=== PATIENT | male | born 1980 | race Caucasian/White ===

== ENCOUNTER 2019-12-09 16:27 | Emergency (ER) | payer OTHER, SELFPAY ==
[2019-12-09 16:39] VITALS: BP 178/105; PULSE 154; RESP 20; TEMP 38.7; O2SAT 100
--- NOTE | 2019-12-09 16:40 | ED.URI ---
HPI - URI/Sore Throat General Chief Complaint: Upper Respiratory Infection Stated Complaint: cough/congestion/fever Time Seen by Provider: 12/09/19 16:40 Source: patient and RN notes reviewed History of Present Illness HPI Narrative: Patient is a 39-year-old male that presents the urgent care with complaints of fever, cough, congestion, scratchy throat. Patient states that it started last night and his infant is currently in the NICU. Patient states that he wanted to rule out all sickness in order to let them know. Patient denies any use of [id number] medication with the exception of essential oils and cough drops. Denies any known contact with strep or flu. Patient states he does have some anxiety and white coat syndrome with going to the doctor. No other acute complaints. Patient appears anxious. No acute distress noted. Patient read the plan of care. Related Data Home Medications Medication Instructions Recorded Confirmed No Home Medications 12/09/19 12/09/19 Allergies Allergy/AdvReac Type Severity Reaction Status Date / Time erythromycin base Allergy Rash Verified 12/09/19 16:43 Penicillins Allergy Rash Verified 12/09/19 16:43 Review of Systems Review of Systems: Narrative: CONSTITUTIONAL: Reports of fevers EYES: Denies visual changes, redness, or discharge. ENT: Reports of sore throat postnasal drainage CARDIOVASCULAR: Denies chest pain, palpitations, or edema. RESPIRATORY: Reports of nonproductive cough without dyspnea GASTROINTESTINAL: Denies abdominal pain, nausea, vomiting, or diarrhea. GENITOURINARY: Denies dysuria or hematuria. SKIN: Denies rash or itching. MUSCULOSKELETAL: Denies back pain, joint pain, or myalgia. NEUROLOGIC: Denies headache, numbness, or weakness. All other systems reviewed are negative, except as documented in HPI. [facility] Social History Social History Smoking status: Never smoker Alcohol intake: never Substance use: never Additional living arrangements comments: The patient lives with his and 2 daughters. 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 Gender identity (if verbalized by the patient): Male Spiritual care concerns: No Agree to blood products: Yes Comments At the time of my signature, I reviewed and agree with the nursing past medical, surgical, social, and family history. There is no relevant family history pertinent to the patient complaint. Exam Narrative: Exam Narrative: GENERAL: This is a well-nourished, well-developed patient, appears anxious HEAD: normocephalic, atraumatic. EYES: PERRL. Sclera clear/white. Vision is grossly intact. EARS: External ears normal, auditory canals clear and without drainage, TMs normal without perforation. Hearing grossly intact. NOSE: External nose normal with no obvious nasal discharge, bilateral erythemic nares with clear rhinorrhea. THROAT: Mucous membranes moist, posterior pharynx clear. Mild postnasal drainage NECK: Neck supple CARDIOVASCULAR: Regular rate and rhythm without murmurs, gallops, or rubs. RESPIRATORY: Clear to auscultation. Breath sounds equal bilaterally. No wheezes, rales, or rhonchi. SKIN: warm, intact with no suspicious lesions or rash, good texture and turgor. NEURO: awake, alert, and oriented to person, place and time. There were no obvious focal neurologic abnormalities. EXTREMITIES: No clubbing, cyanosis, or edema. Course Vital Signs Vital signs: Vital Signs Temperature 101.7 F H 12/09/19 16:39 Pulse Rate 154 H 12/09/19 16:39 Respiratory Rate 20 12/09/19 16:39 Blood Pressure 178/105 H 12/09/19 16:39 Pulse Oximetry 100 12/09/19 16:39 Temperature 101.5 F H 12/09/19 17:17 Pulse Rate 155 H 12/09/19 17:17 Respiratory Rate 20 12/09/19 17:17 Blood Pressure 186/112 H 12/09/19 17:17 Pulse Oximetry 99 12/09/19 17:17 Reviewed?patient is infor
[2019-12-09 16:48] VITALS: TEMP 38.7
[2019-12-09] MEDS: ACETAMINOPHEN 500 MG TABLET 1000 MG PO (16:48)
[2019-12-09 17:14] VITALS: TEMP 38.6
--- NOTE | 2019-12-09 17:15 | PC.NURSE ---
Spoke with pt about elevated HR and b/p, pt informed I would like him to stay a little longer to see if his temperature, HR and B/P will decrease. Pt refuses to stay states that he has to get his home. Pt states that his son is in the NICU and just wanted checked for FLU, pt informed he should no go to the NICU until he is fever free for 24 hours. Pt verbalizes understanding.
[2019-12-09 17:17] VITALS: BP 186/112; PULSE 155; RESP 20; TEMP 38.6; O2SAT 99
== END 2019-12-09 17:17 | disposition home or self-care (01) ==
PROVIDERS: Emergency Provider Nurse Practitioner Family
DX: B34.9 Viral infection, unspecified (principal)
CPT/HCPCS: 87081; 87804; 87880; 99213; A9270; G0463

== ENCOUNTER 2020-08-14 10:34 | Inpatient (IN) | payer OTHER, SELFPAY ==
[2020-08-14] VITALS (38 sets, daily range): BP systolic 148–204; BP diastolic 92–116; PULSE 80–111; RESP 14–22; TEMP 36.2–36.6; O2SAT 92–100; BMI 34.8
--- NOTE | ~2020-08-14 | CT_ITS ---
EXAMINATION: CT chest abdomen pelvis w con DATE: 08/14/2020 13:08 INDICATION: Chest and abdominal pain. Tachycardia. TECHNIQUE: Computed tomography (CT) of the chest, abdomen, and pelvis was performed with 100 mL Omnip aque-350 intravenous contrast. Automated exposure control and iterative reconstruction technique were employed. The dose-length product was 3633.49 mGy-cm. COMPARISON: CT abdomen and pelvis dated 10/03/2019 FINDINGS: CHEST CT: Lungs are clear with no pneumonia, pulmonary edema, pleural effusion or pneumothorax. Heart size is n ormal. No pericardial effusion. Thoracic aorta is normal in caliber with no dissection. No pathologic ally enlarged thoracic lymphadenopathy. Mild bilateral gynecomastia. Mild thoracic spondylosis. ABDOMEN/PELVIS CT: Cholecystectomy clips at the gallbladder fossa. Liver, spleen, pancreas and bilateral adrenal glands are normal. 10 mm cyst at the upper pole of the right kidney. Left kidney and bilateral ureters are n ormal. Bladder is normal. There is mild colonic diverticulosis with a sigmoid predominance. There is no adjacent inflammatory change to suggest diverticulitis. No free intraperitoneal gas or fluid. No pathologically enlarged abdominal or pelvic lymphadenopathy. Small fat-containing umbilical hernia. S mall bone islands at the left acetabulum and right femoral neck. IMPRESSION: 1. No acute cardiopulmonary disease or acute intra-abdominal/pelvic process. Reviewed, dictated and finalized at location B.
--- NOTE | ~2020-08-14 | XR_ITS ---
EXAMINATION: XR chest 2V DATE: 08/14/2020 11:12 INDICATION: Hypertension. TECHNIQUE: Frontal and lateral views of the chest were obtained. COMPARISON: None. FINDINGS: The chest demonstrates clear lungs without pneumonia, pleural effusion, or pneumothorax. Th e heart size is normal. Surgical clips in the right upper quadrant are likely from cholecystectomy. IMPRESSION: 1. No acute cardiopulmonary disease. Reviewed, dictated and finalized at location A.
--- NOTE | ~2020-08-14 | CT_ITS ---
EXAMINATION: CT brain wo con DATE: 08/14/2020 11:17 INDICATION: Weakness. TECHNIQUE: Computed tomography (CT) of the head was performed without intravenous contrast. The mA wa s adjusted according to patient size. Iterative reconstruction technique was employed. The dose-lengt h product was 605.33 mGy-cm. COMPARISON: None FINDINGS: There is no intracranial hemorrhage, acute infarction, or abnormal intracranial mass lesion . The ventricles are normal in size. There is mild mucosal thickening in the ethmoid sinuses. The orb its are normal. The mastoid air cells are normal. IMPRESSION: 1. Normal brain. Reviewed, dictated and finalized at location A. IMPRESSION: 1. Normal brain.
--- NOTE | 2020-08-14 10:43 | ECG_ITS ---
Measurements Intervals [place] Rate: 98 P: 51 [place]: 148 QRS: 13 QRSD: 122 T: 5 QT: 367 QTc: 471 Interpretive Statements SINUS RHYTHM WITH SINUS ARRHYTHMIA POSSIBLE LEFT ATRIAL ENLARGEMENT RIGHT BUNDLE BRANCH BLOCK BASELINE ARTIFACT- I, II, III, AVL, AVF, V2-V3 ABNORMAL ECG Electronically Signed On 08-14-2020 11:05:32 CDT by Vinny Cordova D.O.
[2020-08-14 10:58] LABS: Basophils Percent Auto 0.3 % (0.2-1.2); Eosinophils Absolute Auto 0.1 K/mm3 (0-0.3); Hematocrit 50.2 % (42.0-52.0); Immature Granulocyte Absolute 0.03 K/mm3 (0.00-0.031); Immature Granulocyte Percent A 0.3 % (0-0.5); Lymphocytes Absolute Auto 3.69 K/mm3 (0.9-3.2); Lymphocytes Percent Auto 35.1 % (18.3-44.2); Mean Corpuscular HGB Conc 33.9 g/dl (32-36); Mean Corpuscular Hemoglobin 29.6 pg (26-34); Mean Corpuscular Volume 87.3 fl (80-100); Mean Platelet Volume 9.8 fl (7.4-10.4); Monocytes Percent Auto 9.1 % (2.6-8.5); Neutrophils Absolute Auto 5.7 K/mm3 (1.3-6.7); Neutrophils Percent Auto 54.2 % (45.5-73.1); Platelet Count Result 284 k/mm3 (150-375); Red Blood Count 5.75 M/mm3 (4.6-6.20); Red Cell Distribution Width 12.8 % (11.5-14.5); White Blood Count 10.5 K/mm3 (4.5-10.0)
--- NOTE | 2020-08-14 10:59 | ED.WEAKNESS ---
HPI - Weakness General Chief complaint: Weakness Stated complaint: dont feel right Time Seen by Provider: 08/14/20 10:47 Source: patient Mode of arrival: ambulatory Limitations: no limitations History of Present Illness HPI Narrative: Patient is a 39-year-old gentleman with history of hypertension who presents for evaluation of general malaise and feeling unwell. Patient states he has felt unwell over the past 24 hours. Today, he states that he feels off. He denies any rubi headache, or abdominal pain. He is reporting some left sided chest discomfort that travels into his left axilla. He denies shoulder pain, back pain. No ripping or tearing sensation to the pain. He reports nausea without vomiting. He reports that he was quite dehydrated yesterday after not drinking any water after forgetting to drink all day, and then decided to be seen in the ER this morning. He has had no trouble with ambulation. He has no weight loss. No fever or recent illnesses. Patient is not on any antihypertensives at this time, states he has established with a new primary to visit with on . He cannot recall the name of his primary care physician. Patient reports some tingling in his bilateral lower legs. He denies any alcohol or drug use. No food intolerances. No recent nausea or vomiting. No dysuria or hematuria. Related Data Home Medications Medication Instructions Recorded Confirmed No Home Medications 12/09/19 12/09/19 Allergies Allergy/AdvReac Type Severity Reaction Status Date / Time erythromycin base Allergy Rash Verified 08/14/20 10:38 Penicillins Allergy Rash Verified 08/14/20 10:38 Review of Systems Review of Systems: Narrative: CONSTITUTIONAL: Denies fever, chills, or sweats. EYES: Denies visual changes, redness, or discharge. ENT: Denies rhinorrhea, congestion, sore throat, or otalgia. CARDIOVASCULAR: Denies chest pain, palpitations, or edema. RESPIRATORY: Denies cough or dyspnea. GASTROINTESTINAL: Denies abdominal pain, reports nausea, denies vomiting, or diarrhea. GENITOURINARY: Denies dysuria or hematuria. SKIN: Denies rash or itching. MUSCULOSKELETAL: Denies back pain, joint pain, or myalgia. NEUROLOGIC: Denies headache, numbness, reports feeling diffusely weak PMFSH Past Medical History Medical History (Updated 08/14/20 @ 14:02 by Nilda Wong MD) Acute calculous cholecystitis Acute cholecystitis Cholecystitis, acute with cholelithiasis Encounter for surgical aftercare following surgery on the digestive system Hypertension Surgical History Surgical History (Updated 08/14/20 @ 11:01 by Nilda Wong MD) Hx of cholecystectomy Family History Family History (Reviewed 10/19/19 @ 10:59 by Corinne Helton [facility]) Father Diabetes mellitus Gallbladder disease Social History Social History Smoking status: Never smoker Alcohol intake: never Substance use: never Additional living arrangements comments: The patient lives with his and 2 daughters. 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 Gender identity (if verbalized by the patient): Male Spiritual care concerns: No Agree to blood products: Yes Exam Narrative: Exam Narrative: GENERAL: Awake, alert, conversant, tearful HEAD: Normocephalic, atraumatic. EYES: PERRLA and EOMI. ENT: Nares clear, no rhinorrhea or epistaxis. Mucous membranes moist. NECK: Supple. CHEST: No respiratory distress, breathing even and non labored HEART: Tachycardic rate, sinus rhythm ABDOMEN:Non distended, non tender EXTREMITIES: Normal range of motion. No edema. SKIN: Warm, dry, no rash. NEURO:No focal deficits. Alert and oriented x3. Finger to nose intact bilaterally. EOMs intact without nystagmus. No facial droop/asymmetry noted bilaterally. Grimace intact. Intact sensation in face. Hearing intact bilaterally. Shoulder shrug
--- NOTE | 2020-08-14 10:59 | PC.NURSE ---
PT GIVEN URINAL AT THIS TIME TO ATTEMPT UA, STATES HE CANNOT GO RIGHT NOW, REFUSING STRAIGHT CATH.
[2020-08-14] MEDS: ONDANSETRON INJ 4 MG/2 ML VIAL IV PUSH (11:08)
[2020-08-14] MEDS: SODIUM CHLORIDE 0.9% IV 1,000 ML 999 ML IV CONT (11:08)
--- NOTE | 2020-08-14 11:08 | PC.NURSE ---
PT TO RADIOLOGY AT THIS TIME IN [facility].
[2020-08-14 11:19] LABS: Add Urine Microscopic? NO; Appearance Urine Clear (Clear); Bilirubin Urine Negative (Negative); Blood Urine Negative (Negative); Color Urine Yellow (Yellow); Glucose Urine UA Negative (Negative); Ketones Urine Negative (Negative); Leukocyte Esterase Ur Negative LEU/UL (Negative); Nitrate Urine Negative (Negative); Protein Urine Negative (Negative); Specific Grav Ur 1.016 (1.001-1.035); Urobilinogen Urine Negative mg/dL (<2.0)
[2020-08-14 11:36] LABS: Glucose Point of Care 121 (65-105)
[2020-08-14 11:39] LABS: Prothrombin Time 12.6 Seconds (11.1-14.7)
[2020-08-14 11:40] LABS: Partial Thromboplastin Time 28.1 SECONDS (22.3-36.8)
[2020-08-14 11:42] LABS: D Dimer 0.32 ug/mL (<0.48)
[2020-08-14] MEDS: LABETALOL HCL INJ 100 MG/20 ML VIAL 20 MG IV PUSH (11:51)
[2020-08-14 11:57] LABS: Lactic Acid Reflex 1.4 mmol/L (0.7-2.1)
[2020-08-14 11:58] LABS: Alanine Aminotransferase 32 U/L (4-50); Albumin Level 4.3 g/dL (3.5-5.1); Alkaline Phosphatase 88 U/L (38-126); Anion Gap 8 mmol/L (8-16); Aspartate Amino Transferase 30 U/L (17-59); Bilirubin,Total 1.2 mg/dL (0.2-1.3); Blood Urea Nitrogen 14 mg/dL (9-20); Calcium 9.2 mg/dL (8.4-10.2); Carbon Dioxide 28 mmol/L (22-30); Chloride 101 mmol/L (98-107); Creatine Kinase 138 U/L (55-170); Estimated CRCL calculation 129 ml/min; Estimated Glomerular Filt Rate > 60; Glucose 135 mg/dL (75-110); Potassium 3.9 mmol/L (3.4-5.0); Sodium 137 mmol/L (137-145)
[2020-08-14 12:09] LABS: NT Pro B Type Natriuretic Pept 65 PG/ML (5-100); Troponin I < 0.012 ng/mL (0.000-0.034)
[2020-08-14 12:27] LABS: Thyroid Stimulating Hormone 0.921 uIU/mL (0.465-4.680)
[2020-08-14] MEDS: ASPIRIN 81 MG CHEWABLE TABLET 324 MG PO (14:20)
--- NOTE | 2020-08-14 15:18 | ADMGEN ---
This patient, Ky Yan, was admitted to IMU Room 213-01. Patient/family oriented to hospital policies and general routines including ID bracelet, bed and alarms, visiting hours, pain management, procedures, bathroom and other care routines, personal items, smoking policy, room service/diet, and visiting hours. Valuables list has been completed. Information on how to activate the Rapid Response Team has been discussed. Patient/Family are encouraged to report perceived risks to care and to ask questions if they do not understand what they are told or what they should do.
[2020-08-14 17:47] LABS: Troponin I < 0.012 ng/mL (0.000-0.034)
--- NOTE | 2020-08-14 17:58 | PM.IMHP ---
H&P: HPI History of Present Illness Date/Time: 08/14/20 17:58 Chief complaint: hypertensive crisis Narrative: Ky Yan is a 39 year old male Who is a fairly healthy patient and is not on any medications. The patient had his gallbladder removed here October of last year. Patient was noted to have an elevated blood pressure at that time of about 170/90. However the patient has not been on any blood pressure medications. The patient stated that he has not been feeling very well for approximately 1 month. The patient has been monitoring his blood pressures and his blood pressure is 140/90 last night he rejected again this morning and it was the same it. Today the patient just stated that he did feel very well that he had some discomfort under his left arm it was somewhat tender. It did get worse with movement at 1 time. Otherwise it just lasted for few seconds. The patient stated that he felt dehydrated because he had not drink very much he fluids yesterday. The patient stated he has not done anything straining is but this feels like a pulled muscle. He just feels off today. Patient recently got established with a new primary care doctor who is not seen yet. Prior to coming to the hospital patient's blood pressure came up to 170/100. He had no nausea or vomiting. He also had some numbness and tingling to his lower extremities. It was localized pain under the left axillary area but it did not radiate down his arm or up his neck. And only lasts a few seconds and was gone. When the patient had a CT scan performed in the emergency room and lifted up his left arm he felt a little bit of a pain under that left arm as well. And if that area is touched it is slightly tender. EKG shows a right bundle branch block. The patient was not aware of having any abnormal EKGs in the past. Patient is not having any chest pain at this time. The patient does note that he has been under lot of stress recently. Troponins are negative x2. I briefly spoke to Cardiology who stated they would be available if the needed to be involved. At this time everything is coming back negative. The patient and his are requesting to be evaluated by a backbreaker. The patient was given IV fluids in the emergency room, labetalol, aspirin and Zofran. Chest abdominal pelvis CT was read as no acute cardiopulmonary disease or acute intra-abdominal pelvic process. Head CT was read as normal brain. Chest x-ray was read as no acute cardiopulmonary disease. Date of service is 08/14/2020 Review of Systems Review of Systems: All systems reviewed & are unremarkable except as noted in HPI and below Constitutional: Constitutional: Reports as per HPI and Reports no additional constitutional complaints Eyes: Eyes: Reports as per HPI and Reports no additional eye complaints ENT: Reports system reviewed and no additional complaints, except as documented and Reports Normal hearing present Cardiovascular: Cardiovascular: Reports no additional cardiovascular complaints Respiratory: Respiratory: Reports no additional respiratory complaints and Reports no additional respiratory complaints Gastrointestinal: Gastrointestinal: Reports as per HPI and Reports no additional gastrointestinal complaints Musculoskeletal: Musculoskeletal: Reports no additional musculoskeletal complaints Integumentary/Breasts: Skin/Breast: Reports system reviewed and no additional complaints, except as docu and Reports as per HPI Neurologic: Reports system reviewed and no additional complaints, except as documented, Reports as per HPI and Reports Normal hearing present Psychiatric: Psychiatric: Reports no additional psychiatric complaints and Reports as per HPI Endocrine: Endocrine: Reports no additional endocrine complaints Hematologic/Lymphatic: Hematologic/Lymphatic: Reports no additional hematologic/lymphatic complaints Allergic/Immunologic: Allergic/Immunologic: Reports no additional allergic/immu
[2020-08-14] MEDS: hydrALAZINE HCL 20 MG/ML VIAL IV PUSH (18:58)
[2020-08-14 21:09] LABS: Troponin I < 0.012 ng/mL (0.000-0.034)
[2020-08-14] MEDS: ACETAMINOPHEN 325 MG TABLET 650 MG PO (21:39)
[2020-08-15] VITALS (20 sets, daily range): BP systolic 121–179; BP diastolic 64–101; PULSE 63–105; RESP 16–20; TEMP 35.6–36.5; O2SAT 96–99
--- NOTE | 2020-08-15 | ECHO_ITS ---
Patient Info Name: Ky Yan Age: 39 years : 1980 Gender: Male Ht: 76 in Wt: 286 lbs BSA: 2.68 m2 HR: 89 bpm BP: 137 / 72 mmHg Heart Rhythm: Sinus Rhythm Technical Quality: Good Exam Date: 08/15/2020 8:07 AM Exam Location: [facility] Patient Status: Inpatient Admit Date: 08/14/2020 Staff Ordering Physician: Pilar Fox NP Director Furniture: Jerad Parra RDCS, RT Attending Provider: Alberto Johnson MD Referring Physician: Ruddy GARRETT; Exam Type: CA echo doppler color flow Study Info Indications I50.9 - Heart failure, unspecified Complete two-dimensional, color flow and Doppler transthoracic echocardiogram is performed. Strain analysis performed. Summary 1. Complete two-dimensional, color flow and Doppler transthoracic echocardiogram is performed. 2. Strain analysis performed. 3. Left ventricular chamber dimension is normal. 4. Left ventricular systolic function is normal, estimated at 60-65%. 5. There is mildly increased left ventricular wall thickness. 6. Left ventricular septal wall motion is normal. 7. The left ventricular diastolic function is normal. 8. Global longitudinal strain is borderline at -17 %. 9. There is mild mitral valve regurgitation. 10. There is mild tricuspid valve regurgitation. 11. There is mild pulmonic regurgitation. Left Ventricle Left ventricular chamber dimension is normal. Left ventricular systolic function is normal, estimated at 60-65%. There is mildly increased left ventricular wall thickness. Left ventricular septal wall motion is normal. The left ventricular diastolic function is normal. Global longitudinal strain is borderline at -17 %. Right Ventricle Right ventricular chamber dimension is normal. Right ventricular systolic function is normal. Left Atria Left atrial chamber dimension is normal. Right Atria Right atrial chamber dimension is normal. Atrial Septum Interatrial septum not well visualized by color flow imaging. Aortic Valve The aortic valve is trileaflet. There is no aortic valve sclerosis. There is no aortic valve stenosis. There is trace aortic valve regurgitation. Pulmonic Valve The pulmonic valve is normal. There is no pulmonic valve stenosis. There is mild pulmonic regurgitation. Mitral Valve The mitral valve has normal leaflets. There is no mitral valve stenosis. There is mild mitral valve regurgitation. Tricuspid Valve The tricuspid valve leaflets are normal. There is no significant tricuspid valve stenosis. There is mild tricuspid valve regurgitation. Pericardium/Pleural The pericardium appears normal. There is trivial pericardial effusion. Inferior Vena Cava Normal inferior vena cava with <50% collapse upon inspiration consistent with elevated right atrial pressure, 10 mmHg. Aorta The aortic root size at the sinus of Valsalva is normal. Left Ventricular Outflow Tract Name Value Normal LVOT 2D LVOT Diameter 2.2 cm LVOT Doppler LVOT Peak Gradient 5 mmHg LVOT Mean Gradient 3 mmHg LVOT VTI
[2020-08-15 05:34] LABS: Alanine Aminotransferase 28 U/L (4-50); Albumin Level 3.8 g/dL (3.5-5.1); Alkaline Phosphatase 74 U/L (38-126); Anion Gap 6 mmol/L (8-16); Aspartate Amino Transferase 27 U/L (17-59); Bilirubin,Total 1.1 mg/dL (0.2-1.3); Blood Urea Nitrogen 11 mg/dL (9-20); CRP < 0.5 mg/dL (<1.0); Calcium 8.9 mg/dL (8.4-10.2); Carbon Dioxide 29 mmol/L (22-30); Chloride 105 mmol/L (98-107); Cholesterol 181 mg/dL (0-200); Estimated CRCL calculation 127 ml/min; Estimated Glomerular Filt Rate > 60; Glucose 104 mg/dL (75-110); HDL Direct 29 mg/dL; Lactate Dehydrogenase 294 U/L (313-618); Magnesium 2.6 mg/dL (1.6-2.3); Sodium 140 mmol/L (137-145); Triglycerides 118 mg/dL (<150)
[2020-08-15 05:44] LABS: LDL Cholesterol Direct 133 mg/dL
--- NOTE | 2020-08-15 08:47 | PM.IMPN ---
Progress Note: A&P Assessment and Plan (1) Right bundle branch block: Code(s): I45.10 - Unspecified right bundle-branch block Status: Acute Assessment and Plan: New RBBB, stable. (2) Chest pain: Code(s): R07.9 - Chest pain, unspecified Status: Acute Assessment and Plan: Does not appear to be of cardiac origin, trops are normal, ECG no T waves or ST changes. 2DECHO noted Appreciate Cardiology note. (3) Anxiety: Code(s): F41.9 - Anxiety disorder, unspecified Status: Acute Assessment and Plan: Xanax prn at HS Going home will start Buspirone (4) Hypertensive crisis: Code(s): I16.9 - Hypertensive crisis, unspecified Status: Acute Assessment and Plan: Patient will be started on Lisinopril 10 mg po daily. Will follow up in the outpatient setting with his PCP, previous existing appointment Continue to monitor. (5) Atypical chest pain: Code(s): R07.89 - Other chest pain Status: Acute Assessment and Plan: Likely secondary to MSK as reproducible Tylenol prn Ruled ACS with negative trops, ECG no changes. (6) Hypertension: Qualifiers: Hypertension type: essential hypertension Qualified Code(s): I10 - Essential (primary) hypertension Code(s): I10 - Essential (primary) hypertension Status: Acute Assessment and Plan: Will be started on Lisinopril as stated above. Subjective Date/time seen: 08/15/20 08:47 Patient presented to ED after he had an abnormal reading of his BP at home, has been feeling off for couple of days. Review of Systems Review of Systems: Narrative: Chest discomfort on the precordial area with radiation to L armpit. Constitutional: Comments: No fevers, no chills, no rigors. ENT: Comments: No vision changes, no nasal discharge, no throat pain. Cardiovascular: Cardiovascular: Reports chest pain and Reports chest pain at rest Comments: Chest discomfort like burning sensation with radiation to L armpit. Respiratory: Comments: No cough, no sputum production, no sob. Gastrointestinal: Comments: no n/v/abdominal pain Musculoskeletal: Comments: Chest pain with radiation to L armpit. Integumentary/Breasts: Comments: no rashes, no discoloration. Neurologic: Comments: No sensorymotor deficit. Psychiatric: Psychiatric: Reports anxiety Endocrine: Comments: no heat or cold intolerance, no increased thirst. Hematologic/Lymphatic: Comments: No LAP Exam Narrative: Exam Narrative: Lying in bed, awake, alert. Const: General: cooperative, healthy appearing, comfortable, well developed, alert, awake, Physically active and anxious Nutritional Appearance: average body habitus Orientation/consciousness: patient oriented x3 Limitations: no limitations HENMT: Head: normal to inspection, normocephalic and atraumatic Ears: hearing grossly normal bilaterally General nose exam: Normal external nose present Face and sinus: normal facial exam Mouth: Yes Normal oral and palatal mucosa present Teeth and gingiva: dentition normal Throat: posterior oropharynx normal Eyes: General: appearance normal, both eyes and all related structures Pupils: Equal, round and reactive pupils present EOM: EOMs intact bilaterally Neck: Neck: full ROM, no lymphadenopathy and no JVD Thyroid: thyroid normal Lymphatic: no lymphadenopathy noted Resp: Auscultation: clear to auscultation bilaterally Cardio: Jugular venous distension: no JVD Palpation: normal PMI Rate: regular rate Rhythm: regular rhythm Heart sounds: S1 normal heart sound present and S2 normal heart sound present GI: Inspection: normal to inspection GI Palp: Yes Soft to palpation and Yes No hepatosplenomegaly present Auscultation: normal bowel sounds Skin: General skin exam: normal color and turgor normal Lesions: no lesions Rashes: no rashes Wounds: no wounds Hair: normal Nails: normal Neuro: General: patient oriented x3 and gait
[2020-08-15] MEDS: ENOXAPARIN 40 MG/0.4 ML SYRINGE SUB-Q (08:51)
[2020-08-15] MEDS: ASPIRIN 81 MG CHEWABLE TABLET PO (08:51)
--- NOTE | 2020-08-15 14:27 | PM.CNCAR ---
Assessment and Plan Assessment and plan (1) Hypertension: Qualifiers: Hypertension type: essential hypertension Qualified Code(s): I10 - Essential (primary) hypertension Code(s): I10 - Essential (primary) hypertension Status: Acute Assessment and Plan: will start him on lisinopril 10 mg daily. Up titrate as Needed (2) Chest pain: Code(s): R07.9 - Chest pain, unspecified Status: Acute Assessment and Plan: this is reproducible And noncardiac in etiology. (3) Anxiety: Code(s): F41.9 - Anxiety disorder, unspecified Status: Acute Assessment and Plan: outpatient treatment (4) Right bundle branch block: Code(s): I45.10 - Unspecified right bundle-branch block Status: Acute Assessment and Plan: echocardiogram is ordered and will be reviewed. History of Present Illness History of Present Illness Consult date/time: 08/15/20 14:27 Requesting physician: Pilar Fox NP Consult reason: hypertension Reason For Visit: hypertensive crisis Narrative: Date of service 08/15/2020 Reason for consultation hypertension, chest pain History: Patient is a 39-year-old male who came to the hospital because he felt off . He has not been feeling well for the past couple days. He woke up yesterday still feeling not normal and checked his blood pressure was 140/90. About 30 minutes later his blood pressure is 170/100. At that point decided to come to the hospital for further workup and evaluation. Patient did have some (core muscle, left armpit sensation . He describes as a burning type of sensation that is worsen whenever he is lifting objects or moving his arm. It is also reproducible by pushing on his chest. Does not radiate into the back or neck. It is not associated with exertion nor is it associated with shortness of breath, nausea or diaphoresis. He admits that he has been under stress and may have some anxiety . Denies any syncope, presyncope, paroxysmal nocturnal dyspnea, orthopnea, edema, palpitations or shortness of breath. Review of Systems Review of Systems: All systems reviewed & are unremarkable except as noted in HPI and below Constitutional: Constitutional: Denies chills Eyes: Eyes: Denies blurry vision ENT: Reports Normal hearing present Cardiovascular: Cardiovascular: Denies syncope Respiratory: Respiratory: Denies cough Gastrointestinal: Gastrointestinal: Denies abdominal pain Genitourinary: Genitourinary: Denies hematuria Musculoskeletal: Musculoskeletal: Denies back pain Integumentary/Breasts: Skin/Breast: Denies swelling Neurologic: Reports Normal hearing present Psychiatric: Psychiatric: Reports anxiety Endocrine: Endocrine: Denies cold intolerance Hematologic/Lymphatic: Hematologic/Lymphatic: Denies easy bleeding Allergic/Immunologic: Allergic/Immunologic: Denies GI upset with certain foods PMFSH Past Medical History Medical History Acute calculous cholecystitis Acute cholecystitis Cholecystitis, acute with cholelithiasis Encounter for surgical aftercare following surgery on the digestive system Hypertension Surgical History Surgical History Hx of cholecystectomy Family History Family History Father Diabetes mellitus Hypertension Gallbladder disease Daughter ASD (atrial septal defect), common atrium (single atrium) Son ASD (atrial septal defect), common atrium (single atrium) Mother No problems noted. Social History Social History Social History: the patient is and lives with his and 3 children. He has 2 daughters and a son. With the baby being 8-month-old. The patient desires to be a full code. He works as an career services assistant athletic direct
[2020-08-15] MEDS: lisinopriL 10 MG TABLET PO (15:54)
[2020-08-15] MEDS: ALPRAZolam (*CRX) 0.5 MG TABLET PO (20:27)
[2020-08-16] VITALS (8 sets, daily range): BP systolic 113–177; BP diastolic 66–96; PULSE 49–92; RESP 16–18; TEMP 35.8–36.9; O2SAT 97–99
[2020-08-16] MEDS: ENOXAPARIN 40 MG/0.4 ML SYRINGE SUB-Q (09:04)
[2020-08-16] MEDS: ASPIRIN 81 MG CHEWABLE TABLET PO (09:04)
[2020-08-16] MEDS: lisinopriL 10 MG TABLET PO ×2 (09:04→11:33)
--- NOTE | 2020-08-16 10:41 | PM.PNCARD ---
Progress Note: A&P Assessment and Plan (1) Hypertension: Qualifiers: Hypertension type: essential hypertension Qualified Code(s): I10 - Essential (primary) hypertension Code(s): I10 - Essential (primary) hypertension Status: Acute Assessment and Plan: will increase lisinopril to 20 mg daily. Okay to go home (2) Chest pain: Code(s): R07.9 - Chest pain, unspecified Status: Acute Assessment and Plan: this is reproducible And noncardiac in etiology. (3) Anxiety: Code(s): F41.9 - Anxiety disorder, unspecified Status: Acute Assessment and Plan: outpatient treatment (4) Right bundle branch block: Code(s): I45.10 - Unspecified right bundle-branch block Status: Acute Subjective Date/time seen: 08/16/20 10:41 Interval history: 39-year-old admitted for hypertension and chest discomfort date of service 08/16/2020: No chest pain, shortness breath. Feels okay. Review of Systems Review of Systems: All systems reviewed & are unremarkable except as noted in HPI and below Constitutional: Constitutional: Denies chills Eyes: Eyes: Denies blurry vision ENT: Reports Normal hearing present Cardiovascular: Cardiovascular: Denies syncope Respiratory: Respiratory: Denies cough Gastrointestinal: Gastrointestinal: Denies abdominal pain Genitourinary: Genitourinary: Denies hematuria Musculoskeletal: Musculoskeletal: Denies back pain Integumentary/Breasts: Skin/Breast: Denies swelling Neurologic: Reports Normal hearing present and Denies syncope Psychiatric: Psychiatric: Reports anxiety Endocrine: Endocrine: Denies cold intolerance Hematologic/Lymphatic: Hematologic/Lymphatic: Denies easy bleeding Allergic/Immunologic: Allergic/Immunologic: Denies GI upset with certain foods Exam Narrative: Exam Narrative: Pleasant and appropriate. Appears stated age Const: General: comfortable Orientation/consciousness: oriented to person and oriented to place HENMT: Head: normal to inspection General nose exam: Normal nares present Eyes: Sclera: sclerae normal Neck: Neck: normal visual inspection Carotids: normal carotid upstroke and no bruits Chest: Chest palpation & inspection: other ( patient does have reproducible chest wall pain to palpation) Resp: Effort & Inspection: normal respiratory effort Auscultation: clear to auscultation bilaterally Cardio: Jugular venous distension: no JVD Rate: regular rate Rhythm: regular rhythm Heart sounds: S1 normal heart sound present and S2 normal heart sound present GI: Inspection: normal to inspection Auscultation: normal bowel sounds Back/Spine/Pelvis: Back: No sacral edema Skin: General skin exam: normal color Neuro: General: oriented to person and oriented to place Cranial nerves: Yes Normal hearing present Cognition (Neuro): normal cognition Speech: normal speech Extrem: General: normal to inspection and no pedal edema Psych: Appearance: grossly normal Objective Data Vital Signs Vital Signs: Vital Signs - 24 hr 08/15/20 12:00 08/15/20 12:40 08/15/20 12:52 Temperature 36.1 C L Pulse Rate 83 95 88 Respiratory Rate 20 Blood Pressure 179/101 H 160/98 H Pulse Oximetry 99 08/15/20 12:53 08/15/20 14:00 08/15/20 16:00 Temperature Pulse Rate 89 91 83 Respiratory Rate Blood Pressure 173/92 H Pulse Oximetry 08/15/20 16:22 08/15/20 18:00 08/15/20 19:38 Temperature 36.2 C L 35.6 C L Pulse Rate 89 84 82 Respiratory Rate 20 18 Blood Pressure 175/94 H 153/91 H Pulse Oximetry 98 99 08/15/20 19:39 08/15/20 20:00 08/15/20 22:00 Temperature Pulse Rate 75 87 Respiratory Rate Blood Pressure 150/84 H Pulse Oximetry 08/15/20 23:43 08/16/20 00:00 08/16/20 02:00 Temperature 35.8 C L Pulse Rate 77 67 89 Respiratory Rate 18 Blood Pressure 121/64 Pulse Oximetry 98 08/16/20 04:00 08/16/20 06:00 08/16/20 08
--- NOTE | 2020-08-16 10:53 | PM.DS ---
DS: Admitting Diagnosis Admitting Diagnosis Admitting Diagnosis: hypertensive crisis DS: Discharge Diagnosis Discharge Diagnosis (1) Right bundle branch block: Code(s): I45.10 - Unspecified right bundle-branch block Status: Acute Assessment and Plan: Continue to monitor. (2) Chest pain: Code(s): R07.9 - Chest pain, unspecified Status: Acute Assessment and Plan: ACS ruled out Cardiology was consulted Not felt to be of Cardiac origin 2DECHO was obtained Started on Lisinopril (3) Anxiety: Code(s): F41.9 - Anxiety disorder, unspecified Status: Acute Assessment and Plan: Started on Buspirone going home. (4) Hypertensive crisis: Code(s): I16.9 - Hypertensive crisis, unspecified Status: Acute Assessment and Plan: Resolved. (5) Atypical chest pain: Code(s): R07.89 - Other chest pain Status: Acute Assessment and Plan: Ruled out for ACS with serial negative trops. (6) Hypertension: Qualifiers: Hypertension type: essential hypertension Qualified Code(s): I10 - Essential (primary) hypertension Code(s): I10 - Essential (primary) hypertension Status: Acute Assessment and Plan: Started on Lisinopril. Will follow up with his PCP. DS: Summary Hospital Course Reason for hospitalization: Patient presnted to ED according to him he was feeling off had precordial discomfort with radiation to L armpit. Hospital Course: Uneventful Cardiology consulted. Was placed on Telemetry unit. Was ruled out for ACS with serial negative trops. A 2D ECHO was obtained as well Patient was started on Lisinopril Status at Discharge Functional status at discharge: independent ambulation Overall status at discharge: patient is back to baseline Time Spent with Patient Time attestation: Total time spent providing and/or coordinating discharge services: Time spent: Greater than 30 minutes Discharge Plan Discharge Consulting providers: Naseem Etienne Discharging Clinician: Bárbara Purdy V. Patient Disposition: Home, Self-Care Activity: as tolerated Diet: heart healthy Discharge Instructions: Lisinopril 10 mg tab was increased to 20 mg po daily by Cardiology team. Prescribed 10 mg tabs Take 2 tabs in am Patient Instructions: Antibiotic Form, Lisinopril (By mouth) Stand Alone Forms: General Discharge Information Follow-up/Referrals: Jena,Kennedy Arboleda MD [Primary Care Provider] - Call for Appointment (Patient has existing previous appoitment.) Discharge Medications: New buspirone 5 mg tablet 5 mg PO TID Qty: 30 RF: 0 lisinopril 10 mg Tablet 10 mg PO DAILY Qty: 30 RF: 0 Date of admission: 08/14/20 13:59 Primary Care Provider: Jena,Kennedy Arboleda Admitting Provider: Alberto Johnson Attending physician on admission: Alberto Johnson Condition: Stable Quality VTE Prophylaxis VTE prophylaxis: pharmacologic ordered
== END 2020-08-16 12:18 | disposition home or self-care (01) | DRG 305 ==
LOC: ANHED 14:02 → ANHIMU 14:15
PROVIDERS: Nurse Practitioner; Admitting Provider Internal Medicine; Emergency Provider Emergency Medicine; PCP Family Medicine; Visit Provider Internal Medicine
DX: I16.9 Hypertensive crisis, unspecified (principal); I10 Essential (primary) hypertension; I45.10 Unspecified right bundle-branch block; F41.9 Anxiety disorder, unspecified; R07.89 Other chest pain; Z28.21 Immunization not carried out because of patient refusal
CPT/HCPCS: 36415; 70450; 71046; 71260; 74177; 80053; 80061; 81003; 82550; 82948; 83605; 83615; 83735; 83880; 84443; 84484; 85025; 85380; 85610; 85730; 86140; 93005; 93306; 96361; 96372; 96374; 96375; 99285; A9270; G0378; J0360; J1650; J2405; J7030; Q9967